=== PATIENT | male | born 1985 | race Caucasian/White ===

== ENCOUNTER → 2021-10-09 12:03 | Outpatient (BNVA) | payer MEDICAID, SELFPAY | PROVIDERS: Visit Provider Registered Nurse Neonatal Intensive Care | DX: Z20.822 Contact with and (suspected) exposure to COVID-19 (principal) | CPT/HCPCS: 87635 ==

== ENCOUNTER 2022-02-11 08:57 | Emergency (ER) | payer BC, MEDICAID, SELFPAY ==
[2022-02-11 09:23] VITALS: BP 136/87; PULSE 70; RESP 14; TEMP 36.7; O2SAT 96
--- NOTE | 2022-02-11 10:37 | ED_ITS ---
HPI - General Adult General: Chief complaint: General Medical Stated complaint: Tooth ache Time Seen by Provider: 02/11/22 09:37 Source: patient Mode of arrival: ambulatory History of Present Illness: 36-year-old male presents emergency room complaining of a toothache and upper respiratory symptoms mild left ear discomfort the tooth pain is in the lower left mandible. Low-grade subjective fever slight cough nonproductive. Started approximately 2 to 3 days ago. Onset (ago): day(s) Location: head Severity: mild Quality: sharp Pain Consistency: constant Relieving factors: none Exacerbating factors: none Associated symptoms: Reports cough and fevers/chills; Deny chest pain, confusion, diaphoresis, decreased appetite, dyspnea, headache(s), malaise, nausea, rash, palpitations, seizures, short of breath, syncope, vomiting or weakness Treatments prior to arrival: none Review of Systems Const: Denies: fever(s), chills, fatigue, malaise or diaphoresis ENMT: Reports: ear or mastoid pain; Denies: throat pain, nasal discharge or nasal congestion Card: Denies: chest pain, palpitations or syncope Resp: Denies: dyspnea GI: Denies: abdominal pain, nausea or vomiting : Denies: flank pain, dysuria, urinary frequency or urinary urgency Musc: Denies: neck pain Skin/Breast: Denies: rash Neuro: Denies: headache(s) or confusion PFS ED PFSH: Medical History (Updated 02/18/22 @ 14:53 by Taye Espinoza DO) No significant past medical history Surgical History (Updated 02/18/22 @ 14:53 by Taye Espinoza DO) No significant past surgical history Social History (Updated 02/18/22 @ 14:53 by Taye Espinoza DO) Smoking and tobacco status: current every day smoker Alcohol intake: current Physical Exam Const: COMMON NORMALS: no acute distress GENERAL APPEARANCE: cooperative and comfortable ORIENTATION/CONSCIOUSNESS: Yes awake, Yes oriented to person, Yes oriented to place and Yes oriented to time HENMT: COMMON NORMALS: normocephalic, atraumatic, hearing grossly normal bilaterally, external ears normal, EAC's normal, TM's normal bilaterally, Normal nasal mucous membranes and turbinates present, moist oral mucous membranes and oropharynx normal HEAD & SCALP: normocephalic and atraumatic NOSE: Normal nasal mucous membranes and turbinates present EXTERNAL EAR: Yes external ears normal EXTERNAL AUDITORY CANAL: EAC's normal TYMPANIC MEMBRANE: TM's normal bilaterally OTHER: Dental caries mild swelling of the gumline right. First and second molars on the mandible Eye: COMMON NORMALS: Equal, round and reactive pupils present, EOMs intact bilaterally, conjunctivae normal and no scleral icterus CONJUNCTIVA: Yes conjunctivae normal PUPIL: Yes Equal, round and reactive pupils present Neck/C-Spine: COMMON NORMALS: full ROM, no lymphadenopathy, supple and no JVD Lymph: LYMPHATIC: no lymphadenopathy noted and no lymphedema noted Resp: COMMON NORMALS: normal respiratory effort, No retractions, No use of accessory muscles and clear to auscultation bilaterally AUSCULTATION: clear to auscultation bilaterally Cardio: COMMON NORMALS: no JVD, regular rate, regular rhythm and No murmurs present (Cardio) RATE: regular rate RHYTHM: regular rhythm GI: COMMON NORMALS: Soft to palpation and No hepatosplenomegaly present AUSCULTATION: Yes normoactive bowel sounds PALPATION: Yes Soft to palpation, No Tenderness to palpation present (GI), No Guarding due to palpation present (GI) and Yes No hepatosplenomegaly present Extremity: COMMON NORMALS: normal to inspection, capillary refill normal, no clubbing, cyanosis or edema, no calf tenderness and no pedal edema Neuro: SENSORIUM/ORIENTATION: Yes oriented to person, Yes oriented to place and Yes oriented to time Skin: COMMON NORMALS: no rashes or lesions noted GENERAL SKIN EXAM: no rashes or lesions noted Course Vital Signs: Vital signs: Vital Signs Temperature 98.0 F 02/11/22 09:23 Pulse Rate 86 02/11/22 11:13 Respiratory Rate 14 02/11/22 09:23 Blood Pressure 136/87 02/11/22 09:23 Pulse Oximetry 98 02/11/22 11:13 Oxygen Delivery Me thod 02/11/22 09:23 MDM - General Adult Medical Decision Making On exam ears bilateral clear there is no swelling of submandibular space neck is supple without lymphadenopathy start oral antibiotics follow-up with dentist soon as able Discharge Plan Discharge Patient Disposition: Home Clinical Impression: Dental caries Condition: Stable Prescriptions: New amoxicillin-pot clavulanate 875-125 mg tablet 1 tab PO BID Qty: 20 0RF Discharge Orders: Discharge ED (Routine); Ordered 02/11/22 Ordered By: Taye Espinoza Discharge Diet: Soft Mechanical Discharge Activity: Increase activity as tolerated Patient Instructions: Opioid Safety, Pain Management Activity Restrictions/Additional Instructions: You were seen today for upper respiratory symptoms and a tooth ache. Upper respiratory symptoms appear to be more viral in nature. We did start an oral antibiotic for the tooth pain you are having I do recommend that you follow-up with a dentist as soon as you are able. Coding Level of Care Code ED Liaison Inspection Laboratory Assistant for Simone Garcia
[2022-02-11 11:13] VITALS: PULSE 86; O2SAT 98
== END 2022-02-11 11:10 | disposition home or self-care (01) ==
PROVIDERS: Emergency Provider Family Medicine
DX: K02.9 Dental caries, unspecified (principal); H92.02 Otalgia, left ear; R05.9 Cough, unspecified; R50.9 Fever, unspecified; F17.200 Nicotine dependence, unspecified, uncomplicated
CPT/HCPCS: 99283